=== PATIENT | male | born 1980 | race Caucasian/White ===

== ENCOUNTER 2018-07-25 17:48 | Emergency (ER) | payer BC ==
[2018-07-25] MEDS ORDERED: Ondansetron 8 MG Tab.DIS PO ONE (17:54)
[2018-07-25] MEDS ORDERED: SUMAtriptan 6 MG/0.5 ML SDV SUBCUT ONE (17:54)
--- NOTE | 2018-07-25 17:58 | EDM.PDOC ---
ED HPI GENERAL MEDICAL PROBLEM - General Stated Complaint: MIGRAINE Time Seen by Provider: 07/25/18 17:51 Source of Information: Reports: Patient, Family History Limitations: Reports: No Limitations - History of Present Illness INITIAL COMMENTS - FREE TEXT/NARRATIVE: 37 y.o.w.m came with his family to the ed due to H/O located behind his right eye with nausea and photophobia. No trauma. Pt had those symptoms before but does not remember the meds which helped the pain. No other acute medical issues. BP 129/67 RR 18 Pulse ox 98% on RA, Temp 35.8 pulse 87 Onset Date: 07/25/18 Onset Time: 09:00 Duration: Hour(s):, Getting Worse, Intermittent Location: Reports: Head Quality: Reports: Burning, Dull, Same as Previous Episode Severity: Moderate Improves with: Reports: Medication Worsens with: Reports: None Context: Reports: Other Associated Symptoms: Reports: Headaches, Other (nausea) headache Pain Score (Numeric/FACES): 2 - Related Data Allergies Allergy/AdvReac Type Severity Reaction Status Date / Time codeine Allergy Hives Verified 07/25/18 18:39 Home Meds: Home Meds NK [No Known Home Meds] 07/25/18 [History] ED ROS GENERAL - Review of Systems Review Of Systems: See Below Constitutional: Reports: No Symptoms, Other (nausea) HEENT: Reports: No Symptoms Respiratory: Reports: No Symptoms Cardiovascular: Reports: No Symptoms Endocrine: Reports: No Symptoms GI/Abdominal: Reports: No Symptoms : Reports: No Symptoms Musculoskeletal: Reports: No Symptoms Skin: Reports: No Symptoms Neurological: Reports: Headache Psychiatric: Reports: No Symptoms Hematologic/Lymphatic: Reports: No Symptoms Immunologic: Reports: No Symptoms - Physical Exam Exam: See Below Exam Limited By: No Limitations General Appearance: Alert, WD/WN, Mild Distress Eye Exam: Bilateral Eye: Normal Inspection Ears: Normal External Exam Nose: Normal Inspection Throat/Mouth: Normal Inspection, Normal Lips, Normal Voice, No Airway Compromise Head Exam: Atraumatic, Normocephalic Neck: Normal Inspection, Supple, Non-Tender, Full Range of Motion Respiratory/Chest: No Respiratory Distress, Lungs Clear, Normal Breath Sounds, Chest Non-Tender Cardiovascular: Normal Peripheral Pulses, Regular Rate, Rhythm, No Edema, No Murmur, No Rub GI/Abdominal: Normal Bowel Sounds, Soft, Non-Tender, No Organomegaly, No Abnormal Bruit, No Mass, Pelvis Stable (Male) Exam: Deferred Rectal (Males) Exam: Deferred Neuro Exam (Abbreviated): Alert, Oriented, CN II-XII Intact, Normal Cognition, Normal Gait, No Motor/Sensory Deficits DTR: 1+: Tricep (R) Back Exam: Normal Inspection, Full Range of Motion Extremities: Normal Inspection, Normal Range of Motion, Non-Tender, No Pedal Edema, Normal Capillary Refill Psychiatric: Normal Affect, Normal Mood Skin Exam: Warm, Dry, Intact, Normal Color, No Rash Course - Vital Signs Text/Narrative:: 37 y.o.w.m came with his family to the ed due to H/O located behind his right eye with nausea and photophobia. No trauma. Pt had those symptoms before but does not remember the meds which helped the pain. No other acute medical issues. BP 129/67 RR 18 Pulse ox 98% on RA, Temp 35.8 pulse 87 PE: WNWD W M with Migraine like symptoms Imaging/Labs not indicated Impression: Migraine like Headache Tx: Imitrex, Zofran Reexam: 80% improvement, requested to be D/C'd Plan: D/C with instructions, refused prescription meds Last Recorded V/S: Last Vital Signs Temp 35.9 C 07/25/18 18:20 Pulse 82 07/25/18 18:20 Resp 18 07/25/18 18:20 BP 129/67 07/25/18 18:20 Pulse Ox 97 07/25/18 18:20 - Orders/Labs/Meds Meds: Medications Discontinued Medications Generic Name Dose Route Start Last Admin Trade Name Niki PRN Reason Stop Dose Admin Ondansetron HCl 8 mg 07/25/18 17:54 07/25/18 18:33 Zofran Odt PO 07/25/18 17:55 8 mg ONETIME ONE Administration Sumatriptan Succinate 6 mg 07/25/18 17:54 07/25/18 18:33 Imitrex SUBCUT 07/25/18 17:55 6 mg ONETIME ONE Administration Departure - Departure Time of Disposition: 19:13 Disposition: Home, Self-Care 01 Condition: Good Clinical Impression: Migraine Qualifiers: Migraine type: without aura Status migrainosus presence: without status migrainosus Intractability: not intractable Qualified Code(s): G43.009 - Migraine without aura, not intractable, without status migrainosus - Discharge Information Instructions: Migraine Headache Referrals: PCP,None [Primary Care Provider] - Forms: ED Department Discharge Additional Instructions: Please increase water intake, f/u, come back if your symptoms get worse acutely
== END 2018-07-25 19:17 | disposition home or self-care (01) ==
LOC: FB.ED 17:48
DX: G43.009 Migraine without aura, not intractable, without status migrainosus (principal); Z88.5 Allergy status to narcotic agent
CPT/HCPCS: 96372; 99283; A9270; J3030